=== PATIENT | female | born 1985 | race Hispanic/Latino ===

== ENCOUNTER 2024-12-14 19:49 | Emergency (ER) | payer OTHER ==
[2024-12-14] MEDS ORDERED: diphenhydrAMINE 50 MG/ML VIAL ONE (21:13)
[2024-12-14] MEDS ORDERED: Metoclopramide HCl 10 MG (2 mL) VIAL ONE (21:14)
[2024-12-14] MEDS ORDERED: Ketorolac Tromethamine 30 MG (1 mL) VIAL ONE (21:14)
== END 2024-12-14 22:07 | disposition home or self-care (01) ==
LOC: CSHERS 19:49
DX: G43.909 Migraine, unspecified, not intractable, without status migrainosus (principal); H66.92 Otitis media, unspecified, left ear
CPT/HCPCS: 96365; 96375; J1200; J1885; J2765; J2919